=== PATIENT | male | born 1935 | race Caucasian/White ===

== ENCOUNTER → 2016-07-07 | Outpatient (CLI) | payer MEDICARE, OTHER | END | disposition home or self-care (01) | LOC: PCVCIMAG 07:58 | PROVIDERS: ATTEND Internal Medicine Cardiovascular Disease | DX: I65.23 Occlusion and stenosis of bilateral carotid arteries (principal); I25.10 Atherosclerotic heart disease of native coronary artery without angina pectoris; E78.00 Pure hypercholesterolemia, unspecified; I10 Essential (primary) hypertension; J44.9 Chronic obstructive pulmonary disease, unspecified; R06.00 Dyspnea, unspecified; R07.89 Other chest pain; M54.9 Dorsalgia, unspecified; Z95.1 Presence of aortocoronary bypass graft | CPT/HCPCS: 80061; 93005; 93880; G0463 ==

== ENCOUNTER → 2017-01-17 | Outpatient (CLI) | payer MEDICARE, OTHER ==
[~2017-01-17] MED LIST: REGADENOSON 0.4 MG/5 ML DISP.SYRIN. IV ONE
--- NOTE | 2017-01-17 17:12 | PCVCIMAG ---
APPROVED REPORT Exam: Nuclear Stress Test Indication: Chest Pain, Dyspnea, CAD, Lightheaded, Dizzy, Diaphoresis on exertion, Patient Location: Out Patient Stress Nurse: Ruba Root, RN, Myla Collazo RN ND Tech:Wellington Long NMTCB Ht: 5 ft 11 in Wt: 212 lbs BSA: 2.16 m2 HR: 65 bpm BP: 152/96 mmHg BMI: 29.5 Rhythm: NSR Medical History Medical History: Age, HTN, CAD, COPD, Former Smoker Medications: Lisinopril, Atorvastatin, Pantoprazole, Glimiperide, Bystolic (held 24 hours) Furosemide, Advair, Dicyclomine Allergies: No known drug allergies Previous Cardiac Procedures: CABG 2006 x4 Pretest Chest Pain Characteristics: No chest pain Exercise History: Sedentary NM EXAM: Myocardial Perfusion REST/STRESS Imaging Protocol: Rest Tc-99m/Stress Tc-99m 1 day Resting Data Rest SPECT myocardial perfusion imaging was performed in supine position 45 minutes following the intravenous injection of 10.6 mCi of Tc-99m Sestamibi. Time of rest injection: 0900 Date: 01/17/2017 Pharmacologic Stress Pharmacologic stress test was performed by injecting Regadenoson 0.4 mg IV push followed by the intravenous injection of 36 mCi of Tc-99m Sestamibi. Time of stress injection: 1010 Date: 01/17/2017 The images were gated to evaluate regional wall motion and calculate left ventricular ejection fraction. Study Quality Study: Good Study Data Post stress, the left ventricular ejection was 70%.. SSS: 1 SRS: 0 SDS: 1 TID = 0.92. 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 No evidence of stress induced ischemia. 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 No evidence of stress induced ischemia. Post stress, the left ventricular ejection was 70%.. No prior study available for comparison. Interpreted by: Stefano Figueroa MD Electronically Approved: 01/17/2017 15:41:33 Stress Test Details Stress Test: Pharmacologic stress testing performed using 0.4 mg of regadenoson per 5 mL given IV over 10 seconds. HR Resting HR: 65 bpmMax Heart Rate (APMHR): 139 bpm Max HR Achieved: 81 bpmTarget HR (85% APMHR): 118 bpm % of APMHR: 58 Recovery HR: 73 bpm BP Resting BP: 152/96 mmHg Max BP: 183/74 mmHg ECG Resting ECG: Sinus Rhythm Stress ECG: Sinus Rhythm Recovery ECG: Sinus Rhythm Clinical Reason for Termination: Completed protocol Stress Symptoms: Dyspnea, Lightheaded Exercise duration: 0 min .55 sec Exercise capacity: 1.0 METs Symptoms resolved during recovery. Stress ECG Conclusion ECG: Non-ischemic Clinical: Non-ischemic <Conclusion> ECG: Non-ischemic Clinical: Non-ischemic
== END | disposition home or self-care (01) ==
LOC: PCVCIMAG 08:34
PROVIDERS: ATTEND Internal Medicine Cardiovascular Disease
DX: I25.10 Atherosclerotic heart disease of native coronary artery without angina pectoris (principal); I10 Essential (primary) hypertension; J44.9 Chronic obstructive pulmonary disease, unspecified; R61 Generalized hyperhidrosis; E78.5 Hyperlipidemia, unspecified; Z95.1 Presence of aortocoronary bypass graft; Z79.899 Other long term (current) drug therapy
CPT/HCPCS: 78452; 93017; A9500; J2785

== ENCOUNTER → 2017-01-19 | Outpatient (CLI) | payer MEDICARE, OTHER ==
--- NOTE | 2017-01-19 10:39 | PCVCIMAG ---
APPROVED REPORT Study performed: 01/19/2017 09:19:21 EXAM: Comprehensive 2D, Doppler, and color-flow Echocardiogram Patient Location: Echo lab Status: routine BSA: 2.16 HR: 62 bpmBP: 112/60 mmHg Rhythm: NSR Other Information Study Quality: Adequate Risk Factors: Cardiac Risk Factors: HTN, Hyperlipidemia, DM Indications COPD Dizziness and Vertigo Dyspnea CAD s/p CABG x4 -2007 2D Dimensions LVEF(%): 50.00 (>50%) IVSd: 11.41 (7-11mm)LVOT Diam: 20.08 (18-24mm) LVDd: 43.83 mm PWd: 11.52 (7-11mm)Ascending Ao: 34.51 (22-36mm) LVDs: 30.91 (25-40mm) Left Atrium: 43.03 (27-40mm) Aortic Root: 35.99 mm LV Single Plane 4CH: 47.26 % LV Single Plane 2CH: 48.49 %Marcus's LVEF: 47.88 % Volumes Left Atrial Volume (Systole) Single Plane 4CH: 67.48 mLSingle Plane 2CH: 56.39 mL LA ESV Index: 32.00 mL/m2 Aortic Valve AoV Peak Ar.: 1.32 m/s AO Peak Gr.: 6.94 mmHgLVOT Max P.21 mmHg LVOT Max V: 1.00 m/s MAI Vmax: 2.40 cm2 Mitral Valve E/A Ratio: 0.8 MV Decel. Time: 311.74 ms MV E Max Ar.: 0.69 m/s MV A Ar.: 0.86 m/s IVRT: 58.82 ms TDI E/Lateral E': 8.63E/Medial E': 17.25 Medial E' Ar.: 0.04 m/s Lateral E' Ar.: 0.08 m/s Pulmonary Valve PV Peak Ar.: 0.97 m/sPV Peak Gr.: 3.77 mmHg Pulmonary Vein P Vein S: 0.51 m/sP Vein A: 0.27 m/s P Vein D: 0.39 m/sP Vein A Dur.: 114.2 msec P Vein S/D Ratio: 1.31 Tricuspid Valve RAP Estimate: 7.00 mmHg Left Ventricle The left ventricle is normal size. There is normal LV segmental wall motion. Mild concentric left ventricular hypertrophy. Left ventricular systolic function is mildly decreased. LVEF is 50%. Grade I - abnormal relaxation pattern. Right Ventricle The right ventricle is normal size. The right ventricular systolic function is normal. Atria The left atrium size is normal. Right atrium is at the upper limits of normal. Aortic Valve The aortic valve is normal in structure. The Aortic valve is sclerotic. No aortic regurgitation is present. There is no aortic valvular stenosis. Mitral Valve The mitral valve is normal in structure. There is mitral annular calcification. Trace mitral regurgitation. No evidence of mitral valve stenosis. Tricuspid Valve The tricuspid valve is normal in structure. There is no tricuspid valve regurgitation noted. Pulmonic Valve The pulmonary valve is normal in structure. There is no pulmonic valvular regurgitation. Great Vessels The aortic root is normal in size. IVC is normal in size and collapses with >50% inspiration. Pericardium There is no pericardial effusion. <Conclusion> The left ventricle is normal size. Mild concentric left ventricular hypertrophy. LVEF is 50%. Left ventricular systolic function is mildly decreased. Grade I - abnormal relaxation pattern. The right ventricle is normal size. The left atrium size is normal. The aortic valve is normal in structure. The Aortic valve is sclerotic. There is no aortic valvular stenosis. Trace mitral regurgitation. There is no tricuspid valve regurgitation noted. There is no pericardial effusion.
== END | disposition home or self-care (01) ==
LOC: PCVCIMAG 09:20
PROVIDERS: ATTEND Internal Medicine Cardiovascular Disease
DX: I34.0 Nonrheumatic mitral (valve) insufficiency (principal); I25.10 Atherosclerotic heart disease of native coronary artery without angina pectoris; I10 Essential (primary) hypertension; E78.00 Pure hypercholesterolemia, unspecified; J44.9 Chronic obstructive pulmonary disease, unspecified; E11.9 Type 2 diabetes mellitus without complications; Z95.1 Presence of aortocoronary bypass graft; Z79.82 Long term (current) use of aspirin; Z87.891 Personal history of nicotine dependence; Z88.8 Allergy status to other drugs, medicaments and biological substances
CPT/HCPCS: 36415; 80061; 93005; 93306; G0463

== ENCOUNTER → 2017-01-26 | Outpatient (CLI) | payer MEDICARE, OTHER ==
[~2017-01-26] MED LIST changes: +DIAZEPAM 10 MG TABLET. ONE; +IOHEXOL 350 MG/ML 100 ML VIAL. ONE; +IOHEXOL 350 MG/ML 50 ML VIAL. ONE; +IV NORMAL SALINE 1000ML BAG 1,000 ML ONE; +LIDOCAINE 1% Multi-Dose 20 ML VIAL. ONE; +MIDAZOLAM HCL/PF 2 MG/2 ML VIAL. ONE; -REGADENOSON 0.4 MG/5 ML DISP.SYRIN. IV ONE; +fentaNYL PF VIAL 100 MCG/2 ML VIAL ONE
--- NOTE | 2017-01-26 17:37 | PCVCINTER ---
APPROVED REPORT Patient Details Patient Status: Room #: 2 The patient is a 81 year-old Male Event Personnel Jaycee Persaud MD, Amaya Wilkinson RN, Evin Cole MD, Felix Quinn RT(R)(), Radha Mina RT(R) Risk Factors Arterial HypertensionDysplipidemia (Type: 1), Family History, Chronic Lung DiseaseHypercholesterolemia, Diabetes (Control: Oral)Last Creatanine 1.1Tobacco History (Former) Previous Procedures/Diagnoses Previous CABG, Previous IN, CAD, COPD, Diabetes, Hypertension Procedure Narrative The patient was brought electively to the Cardiac Catheterization Laboratory and was prepped and draped in a sterile manner. The right femoral was infiltrated with 1% Lidocaine subcutaneous anesthesia. A 6F sheath was inserted into the right femoral artery. Coronary angiography was performed using coronary diagnostic catheters. The right coronary system was accessed and visualized with a JR4 catheter. The left coronary system was accessed and visualized with a JL4 catheter. The left ventricle was accessed and visualized with a Straight pigtail catheter. Left ventriculogram was performed in WALKER projection. An aortogram of the abdominal aorta was performed. Pre-demployment femoral angiogram was performed . Closure device was deployed with a 6 Fr Mynx. Hemostasis was obtained with manual pressure following sheath removal without any complications. There was no hematoma. Hemodynamics The right atrial mean pressure is 2 mmHg. The right ventricular pressure is 119 mmHg. The pulmonary artery pressure is 119 mmHg with a mean of 2 mmHg. The mean pulmonary capillary wedge pressure is 2 mmHg. The aortic pressure is 113/23 mmHg with a mean of 51 mmHg. The left ventricular pressure is 119/-2 mmHg with a mean of 2 mmHg. Conclusion #1 normal left ventricular size and systolic function EF 55% #2 normal caliber abdominal aorta moderately disease iliac system no aneurysm noted #3 left main mildly calcified 40-50% irregularity giving rise to LAD and circumflex which occludes #4 LAD is mild to moderately disease 4050% mid vessel stents to the apex with diffuse disease diagonal system is also widely patent #5 the ADAMS graft to the LAD has become atretic and essentially not functional due to the brisk flow through the kw[place]luk system. #6 [place] right coronary proximal total occlusion #7 SVG to PDA mildly diseased filling the PDA and posterior lateral branch retrograde #8 SVG to OM is mildly disease with a small to moderate size OM branch filling briskly Recommendations and plan continue aggressive risk factor modification no current indication for intervention. No lifting for 48 hours no lying in tub Jacuzzi or Dias for a week
== END | disposition home or self-care (01) ==
LOC: PCVCINTER 07:13
PROVIDERS: ATTEND Internal Medicine Cardiovascular Disease
DX: I25.10 Atherosclerotic heart disease of native coronary artery without angina pectoris (principal); E11.9 Type 2 diabetes mellitus without complications; E78.5 Hyperlipidemia, unspecified; E78.00 Pure hypercholesterolemia, unspecified; J44.9 Chronic obstructive pulmonary disease, unspecified; I10 Essential (primary) hypertension; I25.2 Old myocardial infarction
CPT/HCPCS: 75625; 93459; 99152; 99153; C1751; C1760; C1769; C1894; J1644; J2250; J3010; J7030; Q9967; 93458

== ENCOUNTER → 2017-08-08 | Outpatient (CLI) | payer MEDICARE, OTHER | END | disposition home or self-care (01) | LOC: PCVCCLINIC 10:00 | DX: I25.810 Atherosclerosis of coronary artery bypass graft(s) without angina pectoris (principal); I10 Essential (primary) hypertension; R06.02 Shortness of breath; E78.00 Pure hypercholesterolemia, unspecified; J44.9 Chronic obstructive pulmonary disease, unspecified; Z95.1 Presence of aortocoronary bypass graft; Z87.891 Personal history of nicotine dependence; Z79.82 Long term (current) use of aspirin; Z79.899 Other long term (current) drug therapy | CPT/HCPCS: 80061; 93005; G0463 ==

== ENCOUNTER → 2018-02-15 | Outpatient (CLI) | payer MEDICARE, OTHER | END | disposition home or self-care (01) | LOC: PCVCCLINIC 14:45 | PROVIDERS: ATTEND Internal Medicine Cardiovascular Disease | DX: I25.10 Atherosclerotic heart disease of native coronary artery without angina pectoris (principal); I10 Essential (primary) hypertension; E78.00 Pure hypercholesterolemia, unspecified; J44.9 Chronic obstructive pulmonary disease, unspecified; R06.02 Shortness of breath; R00.2 Palpitations; E11.9 Type 2 diabetes mellitus without complications; Z95.1 Presence of aortocoronary bypass graft; Z79.82 Long term (current) use of aspirin; Z79.84 Long term (current) use of oral hypoglycemic drugs; Z87.891 Personal history of nicotine dependence | CPT/HCPCS: 80061; 93005; G0463 ==

== ENCOUNTER → 2018-08-30 | Outpatient (CLI) | payer MEDICARE, OTHER | END | disposition home or self-care (01) | LOC: PCVCCLINIC 14:00 | PROVIDERS: ATTEND Internal Medicine Cardiovascular Disease | DX: I25.10 Atherosclerotic heart disease of native coronary artery without angina pectoris (principal); E78.00 Pure hypercholesterolemia, unspecified; I10 Essential (primary) hypertension; J84.10 Pulmonary fibrosis, unspecified; Z95.1 Presence of aortocoronary bypass graft; Z79.82 Long term (current) use of aspirin; Z87.891 Personal history of nicotine dependence | CPT/HCPCS: 36415; 80061; 93005; G0463 ==

== ENCOUNTER → 2019-03-11 | Outpatient (CLI) | payer MEDICARE, OTHER ==
[~2019-03-11] MED LIST changes: -DIAZEPAM 10 MG TABLET. ONE; -IOHEXOL 350 MG/ML 100 ML VIAL. ONE; -IOHEXOL 350 MG/ML 50 ML VIAL. ONE; -IV NORMAL SALINE 1000ML BAG 1,000 ML ONE; -LIDOCAINE 1% Multi-Dose 20 ML VIAL. ONE; -MIDAZOLAM HCL/PF 2 MG/2 ML VIAL. ONE; +REGADENOSON 0.4 MG/5 ML DISP.SYRIN. IV ONE; -fentaNYL PF VIAL 100 MCG/2 ML VIAL ONE
--- NOTE | 2019-03-12 14:50 | PCVCIMAG ---
APPROVED REPORT Imaging Protocol: Rest Tc-99m/Stress Tc-99m 1 day Study performed: 03/11/2019 09:37:16 Indication: CAD , Dyspnea Patient Location: Out-Patient Stress Nurse: Sophie Lowery RN, Ruba Root RN GA Tech:Raina Matthewssamuel [facility] Ht: 5 ft 11 in Wt: 208 lbs BSA: 2.14 m2 HR: 73 bpm BP: 127/76 mmHg BMI: 29.0 Rhythm: Mormal Sinus Rhythm Medical History Medical History: HTN, Hyperlipidemia, CVD, CVD, Former Smoker Medications: Lisinopril, Metoprolol Allergies: Pentobarbitol Cardiac Risk Factors: Age Previous Cardiac Procedures: CABG Pretest Chest Pain Characteristics: No chest pain Physical Disabilities: s/p stroke Meds Held (24 hrs): Metoprolol Resting Data Rest SPECT myocardial perfusion imaging was performed in supine position 45 minutes following the intravenous injection of 10.3 mCi of Tc-99m Sestamibi. Time of rest injection: 844 Date: 03/11/2019 Administration Route: IV Administration Site: Right Hand Pharmacologic Stress Pharmacologic stress test was performed by injecting Regadenoson 0.4 mg IV push over 10-15 seconds immediately followed by the intravenous injection of 34.3 mCi of Tc-99m Sestamibi. Time of stress injection: 1015 Administration Route: IV Administration Site: Right Hand Gated Stress SPECT was performed 45 minutes after stress injection. The images were gated to evaluate regional wall motion and calculate left ventricular ejection fraction. Stress Test Details Stress Test: Pharmacologic stress testing performed using 0.4 mg of regadenoson per 5 mL given IV over 10 seconds. Reason for pharmacologic stress test: physical limitation, s/p stroke. HRMax Heart Rate (APMHR): 137 bpm Resting HR: 73 bpmTarget HR (85% APMHR): 116 bpm Max HR Achieved: 96 bpm % of APMHR: 70 Recovery HR: 91 bpm BP Resting BP: 127/76 mmHg Max BP: 120/56 mmHg Recovery BP: 150/73 mmHg ECG Resting ECG: Mormal Sinus Rhythm Stress ECG: Mormal Sinus Rhythm Arrhythmia: None Recovery ECG: Mormal Sinus Rhythm Clinical Reason for Termination: Completed protocol Stress Symptoms: Dyspnea Symptoms resolved during recovery. Stress ECG Conclusion ECG: Non-ischemic Study Quality Study: Good Study Data Post stress, the left ventricular ejection was 64%.. SSS: 0 SRS: 0 SDS: 0 TID = 1.04. Perfusion No evidence of stress induced ischemia or prior myocardial infarction. Wall Motion Normal left ventricular size and function with no regional wall motion abnormalities. Nuclear Conclusion No evidence of stress induced ischemia or prior myocardial infarction. Normal left ventricular size and function with no regional wall motion abnormalities. Post stress, the left ventricular ejection was 64%. No change since prior study dated February 2015. Interpreted by: Stefano Figueroa MD Electronically Approved: 03/11/2019 11:48:59 <Conclusion> ECG: Non-ischemic
== END | disposition home or self-care (01) ==
LOC: PCVCIMAG 15:37
PROVIDERS: ATTEND Internal Medicine Cardiovascular Disease
DX: I25.810 Atherosclerosis of coronary artery bypass graft(s) without angina pectoris (principal); R06.00 Dyspnea, unspecified; J44.9 Chronic obstructive pulmonary disease, unspecified; E78.00 Pure hypercholesterolemia, unspecified; E11.9 Type 2 diabetes mellitus without complications; I10 Essential (primary) hypertension; Z87.891 Personal history of nicotine dependence; Z88.8 Allergy status to other drugs, medicaments and biological substances
CPT/HCPCS: 78452; 93017; A9500; J2785